=== PATIENT | male | born 1990 | race African-American/Black ===

== ENCOUNTER 2017-06-25 08:20 | Emergency (ER) | payer SELFPAY ==
[~2017-06-25] VITALS: Ht 162.6 cm; Wt 59.1 kg
[2017-06-25 08:37] VITALS: TEMP 98.6
[2017-06-25] MEDS ORDERED: CEPHALEXIN500 M1 PO (10:31)
[2017-06-25] MEDS ORDERED: NORCO 325 MG-7.1 TAB PO (10:31)
[2017-06-25 11:10] VITALS: BP 121/71; PULSE 79
== END 2017-06-25 11:22 | disposition home or self-care (01) ==
LOC: COL.ER 08:20
DX: T33.532A Superficial frostbite of left finger(s), initial encounter (principal); F17.210 Nicotine dependence, cigarettes, uncomplicated; Z23 Encounter for immunization; X31.XXXA Exposure to excessive natural cold, initial encounter
CPT/HCPCS: J0690; J3010; J7030